=== PATIENT | female | born 1950 | race Caucasian/White ===

== ENCOUNTER → 2016-09-10 | Outpatient (CLI) | payer MEDICARE, OTHER ==
--- NOTE | ~2016-09-10 | MR18 ---
[facility] A Service of [facility] RADIOLOGY TEXT RESULTS PATIENT: WISAM PEARCE LOCATION: [facility] : 50 UNIT #: [id number] AGE: [address]: Jonnathan Garcia MD SEX: F ORDER DR: [id number] [facility] [address] [place], [place] [address] [id number] O MR#: [id number] Acc #: [id number] NAME: WISAM PEARCE : 1950 SEX: F STUDY DATE/TIME: 09/10/2016 6:58 UNIT: [facility] ROOM: STUDY DESCRIPTION: MR Brain Wo Contrast Attending Physician: Jonnathan Garcia M.D. Referring Physician: Jonnathan Garcia M.D. Ordering Physician: Jonnathan Garcia M.D. Primary Care Physician: Jonnathan Garcia M.D. MRI CENTER REPORT This report is preliminary unless electronic signature is present. EXAM MRI brain without contrast INDICATION Episode of blurred vision and seeing bright lights lasting for 2-3 minutes followed by a left-sided headache. Episode occurred 3 weeks ago. PROCEDURE Multiplanar, multisequence MR imaging of the brain without the administration of contrast. COMPARISON None. FINDINGS No evidence for restricted diffusion. There is no acute hemorrhage, abnormal mass effect, extraaxial fluid collection, or hydrocephalus. Flow voids in the major intracranial vessels are intact. Paranasal sinuses and mastoid air cells are clear. IMPRESSION No acute intracranial findings. Normal unenhanced MRI of the brain. Dictated by... Sascha Owen M.D. THIS IS AN ELECTRONICALLY VERIFIED REPORT Sascha Owen M.D. at 09/11/2016 7:36 AM EED/dixon TD: 09/10/2016 12:51 JOB #: [id number] [facility] A Service [facility] RADIOLOGY TEXT RESULTS PATIENT: WISAM PEARCE LOCATION: [facility] #: [id number] : 50 UNIT #: [id number] AGE: [address]: Jonnathan Garcia MD SEX: F ORDER DR: MRI CENTER REPORT COPY
--- NOTE | ~2016-09-10 | MR122 ---
[facility] A Service of [facility] RADIOLOGY TEXT RESULTS PATIENT: WISAM PEARCE LOCATION: [facility] : 50 UNIT #: [id number] AGE: [address]: Jonnathan Garcia MD SEX: F ORDER DR: [id number] [facility] [address] [place], [place] [address] [id number] O MR#: [id number] Acc #: [id number] NAME: WISAM PEARCE : 1950 SEX: F STUDY DATE/TIME: 09/10/2016 6:47 UNIT: [facility] ROOM: STUDY DESCRIPTION: MR MRA Head Wo Contrast Attending Physician: Jonnathan Garcia M.D. Referring Physician: Jonnathan Garcia M.D. Ordering Physician: Jonnathan Garcia M.D. Primary Care Physician: Jonnathan Garcia M.D. MRI CENTER REPORT This report is preliminary unless electronic signature is present. EXAM MR angiogram of the head without contrast dated 09/10/2016. COMPARISON MRI brain without contrast dated 09/10/2016. HISTORY Episode of blurred vision in the right eye, seeing bright light which lasts for 2-3 minutes. FINDINGS Source and 3-D reconstruction MIP images of the makah of [place] was obtained without contrast. Bilateral intracranial internal carotid arteries, anterior cerebral arteries and middle cerebral arteries are within normal limits. Prominent left PCom is seen which feeds P2 and distal portions of the left [employer], with a very hypoplastic left P1 segment giving rise to the persistent appearance. Basilar artery, right posterior cerebral artery, proximal bilateral superior cerebellar arteries are unremarkable. The slight prominence of the basilar tip is likely related to a junctional complex rather than due to an aneurysm. There is no associated neck. Right vertebral artery is dominant and it predominantly feeds the basilar artery. IMPRESSION 1. No significant stenosis, aneurysm or AVM. Dictated by... Natacha Nieto M.D. THIS IS AN ELECTRONICALLY VERIFIED REPORT Natacha Nieto M.D. at 09/11/2016 3:51 PM CPR/psc STS. [facility] A Service of [facility] RADIOLOGY TEXT RESULTS PATIENT: WISAM PEARCE LOCATION: [facility] : 50 UNIT #: [id number] AGE: [address]: Jonnathan Garcia MD SEX: F ORDER DR: TD: 09/10/2016 22:56 JOB #: [id number] MRI CENTER REPORT COPY
== END | disposition home or self-care (01) ==
LOC: CMRI 06:24
DX: H53.2 Diplopia (principal); R51 Headache
CPT/HCPCS: 70544; 70551

== ENCOUNTER → 2017-02-04 | Outpatient (CLI) | payer MEDICARE, OTHER ==
--- NOTE | ~2017-02-04 | CT101 ---
[facility] A Service of [facility] RADIOLOGY TEXT RESULTS PATIENT: WISAM PEARCE LOCATION: [facility] : 50 UNIT #: [id number] AGE: [address]: Jonnathan Garcia MD SEX: F ORDER DR: [id number] [facility] [address]. [place], [place] [address] [id number] O MR#: [id number] Acc #: [id number] NAME: WISAM PEARCE : 1950 SEX: F STUDY DATE/TIME: 02/04/2017 13:18 UNIT: [facility] ROOM: STUDY DESCRIPTION: CT Maxillofacial Area Wo Cont Attending Physician: Jonnathan Garcia M.D. Referring Physician: Jonnathan Garcia M.D. Ordering Physician: Jonnathan Garcia M.D. Primary Care Physician: Jonnathan Garcia M.D. MEDICAL IMAGING REPORT This report is preliminary unless electronic signature is present EXAM CT scan of the facial bones without contrast, 02/04/2017. HISTORY Fall today with temporal bone pain on left side and forehead pain and swelling. TECHNIQUE Axial 2-mm images were obtained through the facial bones and sagittal and coronal reconstructions were generated. This CT exam was performed with one or more of the following radiation dose reduction techniques: automatic exposure control, adjustment of mA and/or kV according to patient size, and iterative reconstruction. FINDINGS The sinuses are clear. No fracture is visible. 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 The ostiomeatal complexes are patent. The zygomatic arch, mandible, and other facial bones are normal. Mastoid air cells are patent. IMPRESSION Normal CT scan of the facial bones. Dictated by... Bulmaro Lopez M.D. THIS IS AN ELECTRONICALLY VERIFIED REPORT Bulmaro Lopez M.D. at 02/04/2017 4:30 PM Jesse TD: 02/04/2017 15:43 JOB #: [id number] [facility] A Service of [facility] RADIOLOGY TEXT RESULTS PATIENT: WISAM PEARCE LOCATION: [facility] : 50 UNIT #: [id number] AGE: [address]: Jonnathan Garcia MD SEX: F ORDER DR: MEDICAL IMAGING REPORT Page 1 of 1 COPY
--- NOTE | ~2017-02-04 | CT71 ---
[facility] A Service of [facility] RADIOLOGY TEXT RESULTS PATIENT: WISAM PEARCE LOCATION: [facility] : 50 UNIT #: [id number] AGE: [address]: Jonnathan Garcia MD SEX: F ORDER DR: [id number] [place] [id number] [facility]. [place], [place] [address] [id number] O MR#: [id number] Acc #: [id number] NAME: WISAM PEARCE : 1950 SEX: F STUDY DATE/TIME: 02/04/2017 13:22 UNIT: [facility] ROOM: STUDY DESCRIPTION: CT Head Wo Contrast Attending Physician: Jonnathan Garcia M.D. Referring Physician: Jonnathan Garcia M.D. Ordering Physician: Jonnathan Garcia M.D. Primary Care Physician: Jonnathan Garcia M.D. MEDICAL IMAGING REPORT This report is preliminary unless electronic signature is present EXAM CT scan of the head without contrast. INDICATIONS Facial trauma with severe headache after a fall. Head trauma. TECHNIQUE This CT exam was performed with one or more of the following radiation dose reduction techniques: automatic exposure control, adjustment of mA and/or kV according to patient size, and iterative reconstruction. FINDINGS Axial noncontrast images were obtained from the skull base to the vertex. Ventricular size and configuration are normal. There is no evidence of acute infarct or hemorrhage. There are no extra-axial fluid collections. No mass lesion or mass effect is seen. There are no skull fractures. IMPRESSION Normal noncontrast head CT. Dictated by... Bulmaro Lopez M.D. THIS IS AN ELECTRONICALLY VERIFIED REPORT Bulmaro Lopez M.D. at 02/04/2017 4:30 PM ARABELLA/akira TD: 02/04/2017 15:49 JOB #: [id number] [facility] A Service of [facility] RADIOLOGY TEXT RESULTS PATIENT: WISAM PEARCE LOCATION: [facility] #: [id number] : 50 UNIT #: [id number] AGE: [address]: Jonnathan Garcia MD SEX: F ORDER DR: MEDICAL IMAGING REPORT Page 1 of 1 COPY
== END | disposition home or self-care (01) ==
LOC: CCAT 12:50
DX: R51 Headache (principal)
CPT/HCPCS: 70450; 70486